=== PATIENT | female | born 1930 | race Caucasian/White ===

== ENCOUNTER → 2020-02-28 | Outpatient (CLI) | payer MEDICARE, OTHER | END | disposition home or self-care (01) | LOC: RESCLI 14:20 | PROVIDERS: ATTEND Social Worker Clinical | DX: I25.10 Atherosclerotic heart disease of native coronary artery without angina pectoris (principal); R21 Rash and other nonspecific skin eruption; Z79.899 Other long term (current) drug therapy; Z98.890 Other specified postprocedural states ==